=== PATIENT | female | born 1995 | race Caucasian/White ===

== ENCOUNTER 2020-04-04 14:21 | Emergency (ER) | payer MEDICAID ==
[~2020-04-04] VITALS: Ht 165.1 cm; Wt 99.1 kg
[2020-04-04 14:39] VITALS: Ht 165.1 cm; Wt 99.1 kg
[2020-04-04 15:27] LABS: CALC OSMOLALITY 274 mosm/kg (275-300); CALCIUM 8.5 mg/dL (8.5-10.1); CARBON DIOXIDE 22.5 mmol/L (21.0-32.0); CHLORIDE - SERUM 103 mmol/L (98-107); CREATININE - SERUM 0.9 mg/dL (0.6-1.3); GLUCOSE 95 mg/dL (74-106); POTASSIUM - SERUM 3.6 mmol/L (3.5-5.1); SODIUM 138 mmol/L (136-145); UREA NITROGEN 10 mg/dL (7-18); eGFR NON AFRICAN AMERICAN 80 mL/min (90-120)
[2020-04-04 15:30] LABS: BASOPHILS 0.2 % (0-2); EOSINOPHILS 0.7 % (0-7); HEMATOCRIT 42.2 % (36.0-48.0); HEMOGLOBIN 14.4 g/dL (12-16); IMMATURE GRANULOCYTES 0.2 % (0-5); LYMPHOCYTES 14.9 % (15-50); MCH 30.3 pg (26.0-34.0); MCHC 34.1 g/dL (31.0-37.0); MCV 88.7 fL (80.0-100.0); MEAN PLATELET VOLUME 10.7 fL (7.4-10.4); MONOCYTES 7.4 % (2-11); NEUTROPHILS 76.6 % (40-80); PLATELET COUNT 212 10x3/uL (130-400); RBC 4.76 10x6/uL (4.00-5.40); RDW 12.8 % (11.5-14.5); WBC 11.4 10x3/uL (4.8-10.8)
[2020-04-04 15:33] LABS: ALBUMIN 3.4 g/dL (3.4-5.0); ALKALINE PHOSPHATASE 116 U/L (30-120); ALT (SGPT) 34 U/L (10-68); BILIRUBIN - TOTAL 0.41 mg/dL (0.2-1.3); HCG URINE NEGATIVE (NEGATIVE); LIPASE 65 U/L (73-393); PROTEIN - SERUM 7.7 g/dL (6.4-8.2)
[2020-04-04] MEDS ORDERED: ZOFRAN ODT4 MG/UDTAB PO (16:26)
[2020-04-04] MEDS ORDERED: VOLTAREN75 MG PO (16:26)
[2020-04-04 17:16] VITALS: BP 123/74
[2020-04-04 18:59] LABS: BILIRUBIN NEGATIVE (NEGATIVE); KETONE NEGATIVE (NEGATIVE); NITRITE NEGATIVE (NEGATIVE); UROBILINOGEN NORMAL (NORMAL)
[2020-04-04 19:02] LABS: BACTERIA FEW /hpf (NONE SEEN); EPITHELIAL CELLS OCC /hpf (0-5); RED CELLS - URINE 0-5 /hpf (0-5); WHITE CELLS - URINE 0-5 /hpf (0-5)
[2020-04-05] MEDS ORDERED: HYDROCODON-ACE1 EA10 PO (23:57)
== END 2020-04-04 17:17 | disposition home or self-care (01) ==
LOC: D.ER 14:21
PROVIDERS: Emergency Medicine
DX: R10.9 Unspecified abdominal pain (principal); S89.91XA Unspecified injury of right lower leg, initial encounter; X58.XXXA Exposure to other specified factors, initial encounter; J45.909 Unspecified asthma, uncomplicated

== ENCOUNTER 2020-04-05 23:14 | Emergency (ER) | payer MEDICAID ==
[~2020-04-05] VITALS: Ht 165.1 cm; Wt 99.1 kg
[~2020-04-05 23:14] MED LIST: VOLTAREN75 MG PO; ZOFRAN ODT4 MG/UDTAB PO
[2020-04-05 23:23] VITALS: BP 132/82; Ht 165.1 cm; Wt 99.1 kg
[2020-04-05] MEDS ORDERED: HYDROCODON-ACE1 EA10 PO (23:57)
== END 2020-04-06 00:07 | disposition home or self-care (01) ==
LOC: D.ER 23:14
DX: M25.50 Pain in unspecified joint (principal); M79.604 Pain in right leg; M79.601 Pain in right arm; M54.5 Low back pain; J45.909 Unspecified asthma, uncomplicated